=== PATIENT | male | born 1965 | race Caucasian/White ===

== ENCOUNTER 2017-10-12 13:09 | Emergency (ER) | payer OTHER ==
[~2017-10-12] VITALS: Ht 182.8 cm; Wt 65.8 kg
[~2017-10-12 13:09] MED LIST: ELIMITE 5%60 GM T; NYSTATIN OINTME30 GM T; VICODIN 5/500 505 MG PO; ZOVIRAX800 MG PO
== END 2017-10-12 14:33 | disposition home or self-care (01) ==
LOC: ED 13:09
DX: S63.601A Unspecified sprain of right thumb, initial encounter (principal); X58.XXXA Exposure to other specified factors, initial encounter; Y93.89 Activity, other specified; Y92.89 Other specified places as the place of occurrence of the external cause; Y99.8 Other external cause status

== ENCOUNTER → 2019-12-17 | Outpatient (CLI) | payer OTHER | END | disposition home or self-care (01) | LOC: COVID19 13:42 | DX: Z03.818 Encounter for observation for suspected exposure to other biological agents ruled out (principal); Z78.9 Other specified health status ==

== ENCOUNTER 2021-11-03 11:25 | Emergency (ER) | payer OTHER ==
[~2021-11-03] VITALS: Ht 182.8 cm; Wt 106.6 kg
== END 2021-11-03 14:15 | disposition home or self-care (01) ==
LOC: ED 11:25
DX: S93.601A Unspecified sprain of right foot, initial encounter (principal); Z90.89 Acquired absence of other organs; X50.1XXA Overexertion from prolonged static or awkward postures, initial encounter; Y93.89 Activity, other specified; Y92.89 Other specified places as the place of occurrence of the external cause; Y99.8 Other external cause status

== ENCOUNTER 2022-04-23 20:37 | Emergency (ER) | payer OTHER ==
[~2022-04-23] VITALS: Wt 90.7 kg
== END 2022-04-23 21:24 | disposition home or self-care (01) ==
LOC: ED 20:37
DX: Z20.2 Contact with and (suspected) exposure to infections with a predominantly sexual mode of transmission (principal); Z90.89 Acquired absence of other organs

== ENCOUNTER 2025-02-15 18:06 | Emergency (ER) | payer OTHER ==
[~2025-02-15] VITALS: Ht 170.1 cm; Wt 95.3 kg
[2025-02-15] MEDS ORDERED: PREDNISONE20 M1 PO (18:33)
== END 2025-02-15 18:42 | disposition home or self-care (01) ==
LOC: ED 18:06
DX: L50.9 Urticaria, unspecified (principal); Z90.89 Acquired absence of other organs